=== PATIENT | female | born 1950 | race Caucasian/White ===

== ENCOUNTER 2019-01-29 18:45 | Inpatient (IN) | payer MEDICARE ==
[~2019-01-29] VITALS: Ht 175.3 cm; Wt 115.6 kg
--- NOTE | 2019-01-29 | NUR ---
PT RESTING IN BED, EYES CLOSED. RR 16, EVEN,UNLABORED. CPOX 98% 2L NC, P60, TELE 31 SINUS MIKAYLA @ 57. CALL LIGHT IN REACH.
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
--- NOTE | 2019-01-29 22:20 | NUR ---
PT ARRIVED TO FLOOR VIA STRETCHER, SHE WAS TRANSFERED OVER TO BED WITH THE ASSISTANCE OF 4 PEOPLE USING DRAW SHEET. ALBERT CATH IN PLACE AND DRAINING WELL. PT IS TUCKED INTO BED AND CALL LIGHT IS CLOSE.
--- NOTE | 2019-01-30 02:38 | NUR ---
ASSESSMENT COMPLETED. PT SLEEPY. PT DENIES PAIN. RIGHT HAND IV CDI, WNL. IV FLUIDS INFUSING PER ORDER. LUNG SOUNDS PRESENT IN ALL LOBES, CLEAR. TELE #1, SINUS MIKAYLA AT 58. NO OTHER NEEDS, CALL LIGHT IN REACH.
--- NOTE | 2019-01-30 04:55 | NUR ---
PT HAS SLEPT MOST THE SHIFT. PT HAS NOT HAD PAIN SINCE FIRST DOSE OF PRN PAIN MED ON THE MEDSUR FLOOR. LUNG SOUNDS CLEAR AND PRESENT IN ALL LOBES. IV CDI, WNL. PT TOLERATED IV FLUIDS AND ALBERT WELL.
--- NOTE | 2019-01-30 05:19 | NUR ---
PT CALLS STATING SHE IS IN 5/10 PAIN IN LOWER BACK. PRN PAIN MEDICATION PROVIDED. ASSESSMENT, VS AND I&O COMPLETED. PT A&O X4. GCS 15. PT REPOSITIONED. NO OTHER NEEDS AT THIS TIME.
--- NOTE | 2019-01-30 07:00 | NUR ---
REPORT RECEIVED FROM BOOM TRUCK DRIVER RN. PT IN BED WITH EYES CLOSED. CPOX IN PLACE. SATURATIONS 97% ON 2L NC. TELE 1 PLACED. PT IS SR. HR 69. LR AT 100 INFUSING. CALL LIGHT IN REACH.
--- NOTE | 2019-01-30 07:26 | NUR ---
Discussion with Dr Lin. Verbal order to change status to In PT. Dr. Mendoza will consult.
--- NOTE | 2019-01-30 09:00 | NUR ---
DR ROMAN IN TO TALK TO FAMILY ABOUT PLAN OF CARE.
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
--- NOTE | 2019-01-30 10:30 | NUR ---
PT REPROTING 10/28 PAIN IN LOWER BACK. PRN PAIN MEDICATIONS GIVEN. 2L NC STILL IN PLACE. CPOX ON. TELE WIT SR. CALL LIGHT IN REACH. LUNCH ORDERED. DENIES FURTHER NEEDSS.
--- NOTE | 2019-01-30 10:36 | NUR ---
Spoke with pt. She is awake and alert x 3 at my visit. 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 Lives alone in [place] and SO lives across the street. Pt states she is independent and working. Uses a cane at times as she needs surgery on knees bilaterally. Friend Marci, in to visit and plan is for pt to discharge to Marci's home on discharge. [facility]. Called and requested records which were recieved and given to Gisela on med floor to scan into the chart. Dr. Lin updated.
--- NOTE | 2019-01-30 12:11 | NUR ---
PT RESTING IN BED, VERY SORE, BUT PLEASANT. WOULD LIKE TO HAVE FR TURNER VISIT TODAY, BUT STATED SHE WON'T BE MUCH COMPANY. ASSSED ALONG. HAD PRAYER WITH PT AND SHE SEEMED CHILLED, GOT HER A WARM BLANKET. WILL FOLLOW NEEDED
--- NOTE | 2019-01-30 12:30 | NUR ---
ATTEPMTED 2PA WITH FWW TO CHAIR FOR LUNCH. PT ABLE TO SIT AT SIDE OF BED THEN REFUSED TO GET IN CHAIR REFERENCING TO PAIN IN RIGHT KNEE. PT HELPED BACK TO BED. DR ROMAN TO BEDSIDE FOR CONSULTATION.
--- NOTE | 2019-01-30 14:06 | NUR ---
PT REPORTING 11/27 PAIN 1 MEDFORD ADMINSITERED. CALL LIGHT IN REACH.
--- NOTE | 2019-01-30 15:45 | NUR ---
NO DECREASE IN PAIN. OTHER NORCO ADMINSTERED. ICE APPLED TO RIGHT KNEE. CALL LIGHT IN REACH
--- NOTE | 2019-01-30 16:00 | NUR ---
PT REPORTING PAIN NOT MANAGED BY PAIN MEIDCAITONS. PT SENSITIVE OT NARCOTIC PAIN MEDS. DR NUNEZ NOTIFIED. ORDERS FOR 30MG TORIDOL IV Q6P, MOTRIN 600MG PO Q6P, DECREASE IV FLUIDS TO 75ML/HR, AND RIGHT KNEE X RAY R/T ICREASE IN KNEE PAIN. ODERS READ BACK FOR VERIFICATION.
--- NOTE | 2019-01-30 17:41 | NUR ---
PT LYING IN BED AWAKE WITH DINNER. FRIEND AT BEDSIDE. CALL LIGHT IN REACH.
--- NOTE | 2019-01-30 19:10 | NUR ---
RECEIVED REPORT FROM ALICIA MONTESINOS. pt COMPLAINED OF 9/10 PAIN. WHITEBOARD UPDATED. CALL LIGHT WITHIN REACH. WILL RETURN TO MEDICATE.
--- NOTE | 2019-01-30 19:33 | NUR ---
NO SHOWER OR BED BATH DO TO PATIENT IS IN TO MUCH PAIN.
--- NOTE | 2019-01-30 19:46 | NUR ---
DR NUNEZ NOTIFIED OF PT INCREASE IN WEIGHT OF 2 LBS, DECREASED OXYGEN SATURATION TO 88% ON 2L. TITRATED TO 3L NC. POSATIVE FLUID BALANCE OF 1 LITER. ORDERS TO DECREASE IV FLUIDS TO 50ML/HR AND CONTINUE TO MONITOR.
--- NOTE | 2019-01-30 19:58 | NUR ---
pt RATED PAIN 9/10, BASELINE PAIN 5/10. USES AN IMPLANTED "STIMULATOR" FOR PAIN MANAGEMENT. DOES NOT HAVE THE CONTROL DEVICE WITH HER AT THIS TIME. PRN PAIN MED GIVEN (SEE MAR). POSSESSIONS WITHIN REACH. CALL LIGHT WITHIN REACH.
--- NOTE | 2019-01-30 21:35 | NUR ---
NEW IV STARTED IN LEFT WRIST, SECURED WITH TAPE AND COBAN. IV IS INFUSING FINE. MAY BOX TRUCK OWNER OPERATOR REMOVED FEILDSTART IV IN RIGHT HAND AND PT TOLERATED WELL. PT DENIES FURTHER NEEDS AT THIS TIME. CALL LIGHT IS CLOSE.
--- NOTE | 2019-01-30 21:44 | NUR ---
VITALS AND I&OS DONE AND CHARTED. ROOM CLEANED, GARBAGE EMPTIED. FRESH ICE WATER GIVEN. BEDSIDE TABLE AND CALL LIGHT IN REACH.
--- NOTE | 2019-01-30 22:30 | NUR ---
pt RESTING IN BED. ASSESSMENT DONE. EDUCATED ON IMPORTANCE OF DEEP BREATHING, pt DEMONSTRATED CORRECT USAGE OF IS. pt COMPLAINED OF CONTINUED PAIN HAS NOT GOTTEN WORSE. WILL CONTINUE TO MONITOR. CALL LIGHT WITHIN REACH.
--- NOTE | 2019-01-31 00:28 | NUR ---
ROUNDED ON pt. RESTING IN BED WITH EYES CLOSED, RESPIRATIONS REGULAR AND UNLABORED. CALL LIGHT WITHIN REACH.
--- NOTE | 2019-01-31 01:18 | NUR ---
I WENT INTO PT'S ROOM TO EMPTY HER ALBERT, SHE STARTED TALKING ABOUT" THE CATS ON THE WOOTEN" ALSO THE "PEOPLE IN THE ROOM" I EXPLAINED TO HER SHE WAS AT [facility] AND THAT I WAS THE ONLY ONE IN HER ROOM AND THERE WERE NO CAT'S IN HER ROOM. SHE SAID SHE DID NOT BELIEVE ME. I ASKED HER IF THERE WAS ANYTHING I COULD DO FOR HER ? SHE SAID TO " TURN OF THE NOISE ON HER BED" I EXPLAINED TO HER I CANT AND THAT THE BED MAKES NOISES SOMETIMES. SHE SAID "OK" SHE DENIED NEEDING ANYTHING MORE AT IS TIME. BEDSIDE TABLE AND CALL LIGHT IN REACH.
--- NOTE | 2019-01-31 02:39 | NUR ---
ROUNDED ON pt. pt AWAKE, REPORTED 9/10 PAIN, PRN GIVEN (SEE MAR). pt STATED "DON'T WALK THERE IT WILL DRIP ON YOU!" WHEN ASKED TO ELABORATE THE pt REPLIED "THE HEAT LAMP. THE ONE RECESSED INTO THE CEILING IS DRIPPING. YOU ALMOST GOT DRIPPED ON." AFTER TURNING ON THE LIGHT AND STATING THAT THIS RN DID NOT SEE DRIPPING THE pt REPLIED "I WAS HALLUCINATING BEFORE BUT WE BOTH KNOW THAT I AM NOT HALLUCINATING NOW." pt ALLOWED THIS RN TO DO A PARTIAL ASSESSMENT, REFUSED TO OPEN EYES TO EXAMINE PUPILS. CALL LIGHT WITHIN REACH.
--- NOTE | 2019-01-31 04:55 | NUR ---
pt SPEAKING IN ROOM. pt REPORTED HER BLANKETS WERE WET. BLANKETS DRY TO THE TOUCH. OFFERED A WARM BLANKET, pt STATED "YOU MEAN I CAN ACTUALLY HAVE A WARM BLANKET? WAIT HOW DO YOU WARM THEM." WHEN LEAVING ROOM pt STATED "DON'T SPRAY ANYTHING ON THEM." PLACED WARM BLANKET ON pt, pt STATED "I HEARD YOU SPRAYING SOMETHING ON THIS BLANKET I DON'T WANT IT" ITERATED HOW THE BLANKET WARMER WORKED. pt REPLIED THE WARM BLANKET FELT NICE WHEN ASKED IF THERE WAS ANYTHING ELSE THE pt REPLIED "YOU CAN ANSWER THE CALL LIGHT WHEN I USE IT. YOU CAN'T DO THAT FROM THE ROOF SO YOU HAD BETTER PULL A SHANNAN AND COME ON DOWN." CALL LIGHT WITHIN REACH.
--- NOTE | 2019-01-31 06:23 | NUR ---
PT CALLED OUT "MOE" UPON ENTERING THE ROOM SHE STATED "SEE THAT LIGHT BY THE TV, THE BULLDOG ONE UP THERE" PT THEN REQUESTED THAT WE "QUIT PUTTING THE WIRE THROUGH THE WALL" AND TO "TELL MARCO THAT". PT IS NOT EASILY REDIRECTED AND INSISTS THERE IS A BULL DOG UP THERE. PT DENIES FURTHER NEEDS AT THIS TIME. CALL LIGHT IS CLOSE.
--- NOTE | 2019-01-31 06:32 | NUR ---
pt HAD VISUAL AND AUDITORY HALLUCINATIONS DURING SHIFT. IV FLUIDS DECREASED RATE AT START OF SHIFT. URINE OUTPUT LOW. pt DID NOT REST MUCH DURING SHIFT. PAIN ALWAYS RATED 9/10, HAS CHRONIC BACK PAIN WITH IMPLANTED STIMULATOR THAT IS CURRENTLY OFF PER pt. pt ORIENTED ALTHOUGH REFUSES TO GIVE HER NAME AND DATE AT TIMES DUE TO "PRIVACY" CONCERNS. pt HAS NOT USED CALL LIGHT.
--- NOTE | 2019-01-31 07:20 | NUR ---
BEDSIDE REPORT RECEIVED PT ALERT AND INTERACTIVE
--- NOTE | 2019-01-31 07:23 | NUR ---
UPDATED ON MD ABOUT LOW OUTPUT. ORDERED IV FLUIDS TO INCREASE TO 75MLS/HR. PRIMARY RN NOTIFIED. PUMP CHANGED.
[2019-01-31] MEDS ORDERED: PROBENECID500 MG PO (07:44)
[2019-01-31] MEDS ORDERED: CHLORTHALIDONE25 MG PO (07:44)
[2019-01-31] MEDS ORDERED: RANITIDINE HCL150 MG PO (07:45)
[2019-01-31] MEDS ORDERED: BACLOFEN10 MG PO (07:45)
[2019-01-31] MEDS ORDERED: PREGABALIN75 MG PO (07:46)
[2019-01-31] MEDS ORDERED: TIZANIDINE HCL4 MG PO (07:46)
[2019-01-31] MEDS ORDERED: BISOPROLOL-HCT1 EAC1 PO (07:47)
[2019-01-31] MEDS ORDERED: DULOXETINE HCL60 MG PO (07:47)
[2019-01-31] MEDS ORDERED: NORTRIPTYLINE H50 MG PO (07:48)
[2019-01-31] MEDS ORDERED: GABAPENTIN300 MG PO (07:50)
--- NOTE | 2019-01-31 09:48 | NUR ---
DR NUNEZ IN TO SEE PT. PT ALERT AND AND TALKATIVE, ANSWERS QUESTIONS APPROPRIATELY ALSO TALKS NONSENSICAL, "TRIES TO REMEMBER WHERE SHE AND THIS PUBLIC POLICY COORDINATOR WORKED TOGETHER" AND THINGS OF THAT NATURE. USES I/S WITH ENCOURAGEMENT REFUSES UP TO THE CHAIR, BUT DOES WORK WITH P/T FOR A TIME. PT IS NON-WT BEARING RLE UNTIL CT IS COMPLETED. DOES NOT C/O PAIN, BUT TYLENOL AND IBUPROFEN GIVEN PREVENTATIVELY.
--- NOTE | 2019-01-31 11:23 | NUR ---
PATIENT HAS BEEN VERY CONFUSES. SAY THE THERE ARE PROPLE OUT TO GET HER. AND SAYS THAT THERE ARE PEOPLE IN HER ROOM SPITTING IN HER. GAVE PATIENT SOME WATER SHE ATE VERY LITTLE BREAKFAST. CALL LIGHT IS IN REACH, PATIENT HAS A VISTOR IN HER ROOM AT THIS TIME.
--- NOTE | 2019-01-31 13:04 | NUR ---
PT'S PERSONAL ITEMS PLACED IN SAFE. $955. PARKINSON, DEBIT CARD, CHECK BOOK AND OTHER PERSONAL CARDS SENT WITH SECURTY IN CLOSED ENVELOPE. VERIFIED MONEY WITH SECURITY.
--- NOTE | 2019-01-31 13:37 | NUR ---
PT DOWN FOR CAT SCAN RETURNS TO ROOM KNEE BRACE APPLIED PER DR RUBIO WHO WAS IN EARLIER. PT TOLERATING FLUIDS AND FRUIT REFUSES REGULAR MEAL. CONTINUES TO HAVE SOME CONFUSION.
--- NOTE | 2019-01-31 15:12 | NUR ---
Medications reconciled using pharmacy records
--- NOTE | 2019-01-31 16:09 | NUR ---
PT UP TO BEDSIDE COMMODE ABLE TO HAVE A BM, RETURNS TO BED TO REST, WELL TOLERATED. CONTINUES TO BE CONFUSED BUT COOPERATIVE
--- NOTE | 2019-01-31 17:45 | NUR ---
PT TOLERATES BITES ONLY OF EVENING MEAL, REFUSES OFFER OF DIFFERENT ITEMS. TAKING FLUIDS WELL. PT AGREES HER PAIN IS WELL CONTROLLED AT THIS TIME
--- NOTE | 2019-01-31 19:00 | NUR ---
RECEIVED REPORT FROM ALICIA BLAKE. pt RESTING IN BED. NO REQUESTS AT THIS TIME. CALL LIGHT WITHIN REACH. WHITEBOARD UPDATED.
--- NOTE | 2019-01-31 20:27 | NUR ---
CALL LIGHT ANSWERED. pt GIVEN CALL LIGHT. DENIES TOILETING OR ADDITIONAL NEEDS AT THIS TIME. IVF INFUSING WNL. TRAY TABLE ADJUSTED.
--- NOTE | 2019-01-31 21:10 | NUR ---
pt LAYING IN BED. RESPONDED APPROPRIATELY TO QUESTIONS. COMPLAINED THAT THE CEILING WAS DRIPPING ON HER AND REQUESTED THAT HER BED BE MOVED, DONE. ALBERT CARE DONE. VITALS AND I&O RECORDED. ASSESSMENT DONE. pt RATED PAIN 9/10. EDUCATED ON PAIN MANAGEMENT WILL RETURN WITH MEDICATIONS. pt AGREEABLE. REARRANGED POSSESSIONS PER REQUEST AND CLOSED ALL DOORS. NO FURTHER REQUESTS AT THIS TIME. CALL LIGHT WITHIN REACH.
--- NOTE | 2019-01-31 21:21 | NUR ---
CALL LIGHT ON. pt REQUESTED THAT HER BED BE MOVED BECAUSE "THERE IS WATER DRIPPING ON MY FACE AND IN MY EAR." NO LIQUID NOTED ON pt's FACE AND EARS. MOVED BED. pt POINTED TO GRID ON CEILING AND STATED "IT'S ALL UP THERE AND IT'S FROZEN! I'M NOT HALLUCINATING!" INFORMED pt THAT THIS RN WILL TALK TO THE CHARGE NURSE AND SEE IF WE COULD DO SOMETHING. pt AGREEABLE AT THIS TIME. CALL LIGHT WITHIN REACH.
--- NOTE | 2019-01-31 21:53 | NUR ---
CALLED MD REGARDING LAB RESULTS. NEW ORDERS ENTERED.
--- NOTE | 2019-01-31 22:07 | NUR ---
VITALS AND I&OS DONE AND CHARTED. BEDSIDE TABLE AND CALL LIGHT IN REACH.
--- NOTE | 2019-01-31 22:17 | EKG ---
[facility] [address] [place] [address] Signed Normal sinus rhythm Normal ECG No previous ECGs available Confirmed by MARCO ANTONIO ROMAN MD ([id number]) on 01/31/2019 10:17:02 PM Electronically Signed By: MARCO ANTONIO ROMAN MD 01/31/19 2217 PATIENT NAME: CHIKIS HOLDER Electrocardiogram DATE OF : 52 PHYSICIAN: MARCO ANTONIO ROMAN MD REPORT #: [id number] REPORT IS CONFIDENTIAL AND NOT TO BE RELEASED WITHOUT AUTHORIZATION
--- NOTE | 2019-01-31 22:30 | NUR ---
IV ABX INFUSING PER ORDERS. pt VERBALIZED UNDERSTANDING OF TREATMENT. CALL LIGHT WITHIN REACH.
--- NOTE | 2019-01-31 23:11 | NUR ---
IV ABX INFUSION COMPLETE. MAINTENANCE FLUIDS INFUSING. CALL LIGHT WITHIN REACH.
--- NOTE | 2019-02-01 01:33 | NUR ---
CALL LIGHT ON. pt REQUESTED BED BE MOVED BECAUSE "I'M GETTING WET AND I'LL DRY OUT BETTER OVER THERE" BED MOVED PER REQUEST. NO MOISTURE NOTED. PRN PAIN MED GIVEN (SEE MAR). CALL LIGHT WITHIN REACH.
--- NOTE | 2019-02-01 03:52 | NUR ---
ROUNDED ON pt. IV PUMP TURNED TOWARD BED MOVED FROM PRIOR LOCATION. IV PUMP OFF. TUBING BROKEN FROM CASSETTE. NO FLUID FOUND ON BED LINENS OR ON FLOOR. IV PATENT, BLOOD RETURN NOTED. pt STATED "I NEED TO GET UP. RICHI IS COMING TO GET ME." ORIENTED TO PLACE AND SITUATION. STATED "RICHI IS JUST DOWN THE GIRON, GO GET HER." ATTEMPTED TO SIT UP AND GET OUT OF BED. 4PA TO REPOSITION IN BED. LIGHTS ON. pt APPRECIATIVE OF CARE. ASSESSMENT DONE. PRN PAIN PILL GIVEN (SEE MAR). NEW BAG OF FLUIDS HUNG. pt HESITANT ABOUT IV FLUIDS, OKAY TO RUN UNTIL 8AM. BED ALARM ON. CALL LIGHT WITHIN REACH.
--- NOTE | 2019-02-01 05:27 | NUR ---
pt REQUESTED TO SIT UP ON THE SIDE OF THE BED. 2PA TO SIT UP. BED BATH DONE, CHANGED DRAW SHEET. ASSISTED pt BACK TO LAYING DOWN. pt REPORTED THAT HER PAIN WAS IMPROVED TO 8/10. PRN PAIN MED GIVEN. VITALS AND I&O RECORDED. ATTEMPTED TO REMOVE RING OFF LEFT HAND, UNABLE TO DO SO. CALL LIGHT WITHIN REACH.
--- NOTE | 2019-02-01 06:21 | NUR ---
pt RESTED ON AND OFF DURING SHIFT. PAIN STEADY AT 9/10 PRN MEDICATIONS GIVEN X5. EDEMA IN UPPER EXTREMETIES INCREASED. SEDIMENT IN OUTPUT, ALBERT. SAT AT THE SIDE OF THE BED. BED BATH GIVEN. IVF INFUSING. BRACE TO RIGHT LEG. CONFUSED. HALLUCINATING AT TIMES. USES CALL LIGHT.
--- NOTE | 2019-02-01 07:30 | NUR ---
BEDSIDE REPORT RECEIVED. PT STATES SHE NEEDS TO GO STATES HER FRIEND IS WAITING FOR HER ATTEMPTED TO REORIENT UNSUCESSFULLY. ASSISTED PT TO STAND AT BEDSIDE FOR A MINUTE RETURNED TO RESTING IN BED. IV FLUIDS INFUSING ALBERT DRAINING. PT APPEARS CONTENT AT THE MOMENT
--- NOTE | 2019-02-01 08:50 | NUR ---
PT ATE VERY LITTLE BREAKFAST, REFUSES OFFERS OF OTHER ITEMS. ASSISTED WITH PERSONAL HYGIENE THEN TO CHAIR. PT USES I.S WITH ENCOURAGEMENT.
--- NOTE | 2019-02-01 10:04 | NUR ---
PT REMAINS IN THE CHAIR ALL MORNING. DR NUNEZ IN TO SEE HER, SHE CONTINUES TO BE CONFUSED DETERMINED TO GO HOME. UP TO WORK WITH P/T THEN RETURNS TO RESTING IN BED. CALL LIGHT IN HAND, H20 AT BEDSIDE, PT AGREES SHE IS COMFORTABLE
--- NOTE | 2019-02-01 11:18 | NUR ---
dr alba in to see pt discusses plan going forward, pt still determined to be dc'd. iv sl'd per dr alba and gomez mike'd
--- NOTE | 2019-02-01 12:46 | NUR ---
2 PERSON ASSIST TO SHOWER, WELL TOLERATED. PT RETURNS TO BED VISITORS X3 PRESENT. DR ROMAN CONSULTS WITH PT'S FRIEND WHO SHE PLANS TO STAY WITH AFTER SOME REHAB.
--- NOTE | 2019-02-01 13:45 | NUR ---
PT SITTING UPRIGHT IN BED TALKING WITH VISITOR X1 CRYO CUFF TO KNEE
--- NOTE | 2019-02-01 17:55 | NUR ---
PT SITTING UPRIGHT IN BED FOR EVENING MEAL, DOES BETTER EATING, TAKING FLUIDS WELL. PT STILL RESPONDING TO UNSEEN STIMULI STATES HER ROOM IS FULL OF NATS ETC. STATES HER PAIN IS WELL CONTROLLED AT THIS TIME.
--- NOTE | 2019-02-01 19:00 | NUR ---
BEDSIDE REPORT RECEIVED FROM ALICIA BLAKE. pt AWAKE IN BED. RATES PAIN 5/10, STATES "IT'S GOOD". CRYO CUFF WITH ICE IN PLACE ON RIGHT KNEE. NO REQUESTS AT THIS TIME. CALL LIGHT IN REACH.
--- NOTE | 2019-02-01 20:41 | NUR ---
ROUNDED CHARGE. BALDOMERO VARGAS IN ROOM. PATIENTS DRYO REFILLED AND ICE WATER REFILLED. NO FURTHER NEEDS NOTED. CALL LIGHT IN REACH.
--- NOTE | 2019-02-01 20:54 | NUR ---
pt ASSESSMENT COMPLETE. CSM INTACT BLE, 1+ EDEMA BLE, 2+ RLE. BRACE IN PLACE. 2PA TO PIVOT TO [facility] FOR VOID AND BACK TO BED. pt ABLE TO TRANSFER SELF, MINIMAL ASSIST. PRN PAIN MEDICATION FOR 9/10 "ALL OVER PAIN, DOWN SIDE, LOWER BACK". IV ANTIBIOTIC INFUSING WNL ORDERED. CALL LIGHT IN REACH. pt ORIENTED TO ALL ORIENTATION QUESTIONS. STATES "THAT TOILET IS BROKEN, WATER IS LEAKING ALL OVER." NO WATER NOTED. BED ALARM ON FOR pt SAFETY.
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
--- NOTE | 2019-02-01 22:54 | NUR ---
IN pt ROOM, pt YELLING AT MANAGER RN. HOLDING ID BADGE. pt REFUSES TO LET MANAGER RN ASSIST pt. STATES TO PRIMARY NURSE "GET HER OUT OF HERE. I WANT TO TALK TO YOU. I NEED YOU TO TURN THAT FIRE PLACE OFF AND QUIT PARTYING. POP THE POPCORN IN THE MICROWAVE AND NOT ON THE FIRE". pt DECLINES SLEEP MASK OR EAR PLUGS. REORIENTATION TO SOUNDS OF CARE. pt REFUSES TO LET RN SHUT DOOR. BED ALARM ON. pt RESTING IN BED AT THIS TIME.
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
--- NOTE | 2019-02-01 23:35 | NUR ---
pt RESTING IN BED WITH EYES CLOSED. APPEARS TO BE SLEEPING. BREATHING UNLABORED. LIGHTS OFF IN ROOM. BED ALARM ON.
--- NOTE | 2019-02-02 00:59 | NUR ---
pt AWAKE LYING IN BED. IN ROOM TO ASSESS PAIN. STATES "I DON'T WANT ANYTHING, I WANT YOU TO GET IN YOUR CAR AND GO". CURTAIN OPEN. BED ALARM ON.
--- NOTE | 2019-02-02 01:13 | NUR ---
pt CALLING OUT. RATES PAIN 10/10 "ALL OVER". PRN PAIN MEDICATION ADMINISTERED. pt COOPERATIVE. DENIES TOILETING NEEDS. CALL LIGHT IN REACH. BED ALARM ON.
--- NOTE | 2019-02-02 01:15 | NUR ---
pt started trying to get out of bed. I went to see if she needed something and she stated "Did you lock all the doors out there?" I said yes, i took care of it. I asked if she was feeling painful and she said "yes, I am at a 10." ALICIA Sanchez notified. Nothing further needed at this time.
--- NOTE | 2019-02-02 01:50 | NUR ---
BED ALARM SOUNDING. pt CONFUSED, ASKING WHAT ALL THE NOISE WAS. 2PA TO BSC FOR VOID AND BACK TO BED. ASSESSMENT COMPLETE. pt HALLUCINATING, SEEING PEOPLE ON COUCH AND WATER IN PUDDLES ON FLOOR. ABLE TO REMOVE RING, IN PERSONAL BELONGING BAG IN CLOSET. CALL LIGHT IN REACH. BED ALARM ON.
--- NOTE | 2019-02-02 01:57 | NUR ---
pt started getting out of bed causing the bed alarm to go off. ALICIA Sanchez and myself went into room and assisted pt onto BSC and pt did very well. She resulted in 350ccs of urine. She was assessed by ALICIA Sanchez, and nothing further was needed. Bed alarm set, pt comfortable.
--- NOTE | 2019-02-02 03:10 | NUR ---
pt used call light accidentally. I went to see if pt needed anything at this time and was wondering if i could "work this damn bed". She wanted her feet down. She "needs to figure this out so I could go on my walk". I told her she could try to get some more rest since it is 0300. She believed it was 1500. Pt reoriented and was happy to try and get more rest. nothing further needed at this time.
--- NOTE | 2019-02-02 04:34 | NUR ---
BED ALARM SOUNDING. pt HALLUCINATING, SEEING SPIDERS ON DOOR. REORIENTATION PROVIDED. RATES PAIN 8.5/10 IN LL BACK. PRN PAIN MEDICATION ADMINISTERED. BED ALARM ON. pt REFUSING TO GET UP TO CHAIR AT THIS TIME. LYING IN BED, HOB ELEVATED, DRINKING WATER.
--- NOTE | 2019-02-02 04:37 | NUR ---
pt set bed alarm off. went into room and she was saying she wanted a pain pill. ALICIA Sanchez notified. Nothing further needed at this time.
--- NOTE | 2019-02-02 04:38 | NUR ---
VS and I&Os complete on pt. nothing needed at this time.
--- NOTE | 2019-02-02 04:47 | NUR ---
pt CONTINUES TO HALLUCINATE, REORIENTATION PROVIDED NEEDED FOR EVENT, LOCATION. 1PA TO BSC FOR QS VOIDS. BED ALARM IN PLACE. HINGE BRACE RLE. CRYO CUFF WITH ICE IN PLACE TOLERATED. EDEMA NOTED BLE, PEDAL PULSES STRONG BLE. PAIN WELL CONTROLLED WITH PRN MEDICATIONS, ICE. IV SL. BED ALARM IN PLACE THROUGHOUT SHIFT.
--- NOTE | 2019-02-02 06:29 | NUR ---
pt BACK IN BED AFTER UP TO COMMODE WITH RON ROCA. pt RATES PAIN 7-7.5/10 IN LOWER BACK "IT'S OKAY, KIND OF STILL UP THERE". CRYO CUFF WITH ICE IN PLACE RIGHT KNEE. SCHEDULED MEDICATION ADMINISTERED. CALL LIGHT IN REACH. pt VISITING WITH FRIEND RICHI IN ROOM. ICE WATER PROVIDED.
--- NOTE | 2019-02-02 07:25 | NUR ---
BEDSIDE REPORT FROM BALDOMERO VARGAS, IN PT ROOM DISCUSSING PLAN OF CARE WITH PT AND FRIEND AT BEDSIDE.
--- NOTE | 2019-02-02 07:30 | NUR ---
In and spoke with Dionne. Friend Marci present. Discussed placement to [facility], and pt states she is not excited. Discussed further need to be safe when discharging and our concern for Marci. Marci states she is 88 yo and also has concerns. Dionne comments she does not want to over tax Marci. States she would agree to go to [facility] for 3-4 weeks and then go to Marci's house. Discussed PT at [facility] would be able to tell her when she meets goals and can discharge.
--- NOTE | 2019-02-02 07:40 | NUR ---
PATIENT RESTING IN BED. FRIEND IN ROOM. PATIENT REFUSED TO CLEAN HER HANDS AND FACE. CALL LIGHT WITHIN REACH. NO OTHER NEEDS AT THIS TIME
--- NOTE | 2019-02-02 08:35 | NUR ---
PT COOPERATIVE WITH CARE REPORTS STILL SEEING WATER LIKE RAIN IN ROOM AND HALLWAY. SHE UNDERSTANDS IT IS NOT TRUE.
--- NOTE | 2019-02-02 08:49 | NUR ---
NOTIFIED OF PATIENT HAVING CONTINUED VISUAL DISTURBANCES/HALLUCINATIONS.
--- NOTE | 2019-02-02 09:14 | NUR ---
Chart sent to [facility]: Face Sheet, h&P, ER notes, Progress notes, Dr. Mansfield, PT betty and notes, Dr Lin progress notes.
--- NOTE | 2019-02-02 10:19 | NUR ---
PATIENT RESTING IN BED. VITAL SIGNS AND I&O DONE. HIGH BLOOD PRESSURE. RN NOTIFIED. CALL LIGHT WITHIN REACH. NO OTHER NEEDS AT THIS TIME
--- NOTE | 2019-02-02 10:41 | NUR ---
PT WORKING WITH PHYSICAL THERAPY AT THIS TIME.
--- NOTE | 2019-02-02 11:09 | NUR ---
PT RESTING IN BED SHE REPORTS SHE IS STILL HAVING VISUAL DISTURBANCES, IN WATER IN CEILING LIGHTS AND PUPPIES IN CEILING GRATES.
--- NOTE | 2019-02-02 12:02 | NUR ---
CALL LIGHT ANSWERED. PATIENT RESTING IN BED. PATIENT GOES TO USE THE BATHROOM. PATIENT USES WALKER. ONE PERSON ASSISTING. PATIENT BACKS TO BED. CALL LIGHT WITHIN REACH. NO OTHER NEEDS AT THIS TIME
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
--- NOTE | 2019-02-02 13:13 | NUR ---
PT LAYING IN BED, VISITING WITH FRIEND. PT IS PLEASANT, ALERT AND ORIENTED. PT MENTIONED THAT SHE IS TO BE DC'D TO [facility]. SHE ADMITTED AT FIRST SHE TOOK THE NEWS HARD, BUT NOW UNDERSTANDS. ENCOURAGED PT TO VIEW [facility] A TOOL TO GET TO WHERE SHE WANTS TO BE. PT SAYS SHE UNDERSTANDS, REQUESTED PRAYER, CHOSE TO NOT HAVE CROSS CUT SAW OPERATOR BY TODAY. WILL FOLLOW NEEDED
--- NOTE | 2019-02-02 13:41 | NUR ---
PATIENT RESTING IN BED. VISITOR IN ROOM. PATIENT REFUSED TO TAKE HER VITAL SIGNS. THE PATIENT SEEMS CONFUSED AND IS CALLING "LISSA". THIS WAD LUBRICATOR IS GOING TO TRY TO OBTAIN HER VITAL SIGNS IN 20 MINUTES. RN NOTIFIED. I&O DONE. CALL LIGHT WITHIN REACH. NO OTHER NEEDS AT THIS TIME
--- NOTE | 2019-02-02 14:09 | NUR ---
PATIENT RESTING IN BED. VITAL SIGNS DONE. HIGH SYSTOLIC BLOOD PRESSURE. RN NOTIFIED. CALL LIGHT WITHIN REACH. NO OTHER NEEDS AT THIS TIME
--- NOTE | 2019-02-02 14:16 | NUR ---
PATIENT RESTING IN BED. PATIENT ASKS FOR PAIN MEDICINE. RN NOTIFIED. CALL LIGHT WITHIN REACH. NO OTHER NEEDS AT THIS TIME
--- NOTE | 2019-02-02 15:25 | NUR ---
FRESH ICE TO CRYO CUFF AT THIS TIME, PT REPORTS STRESS ABOUT ALL THE BILLS SHE NEEDS TO ADDRESS, AND INSURANCE INFORMATION SHE NEEDS TO GET TO [facility] AND [facility].
--- NOTE | 2019-02-02 16:00 | NUR ---
Received call from [facility]. They will accept [place] tomorrow at 11:00. Called Dr Thompson office and requested he write orders in am for discharge.
--- NOTE | 2019-02-02 16:29 | NUR ---
PT RESTING IN BED ABLE TO REPOSITION HERSELF, SAID SHE WAS UNABLE TO HAVE A SHOWER EARLIER, SHE HAD REFUSED TAKING A SHOWER EARLIER FOR NADIA VELASQUEZ AND TOLD ISRRAEL LAY RN SHE WOULD TAKE A SHOWER TONIGHT WITH BALDOMERO VARGAS. SHOWER OFFERED AT THIS TIME BY THIS RN AND PT REFUSED. PT REPORTS PAIN IS 8-9/10. PT IS LAYING IN BED RELAXED POSITION MAKING JOKES WITH THIS RN AND LAUGHING.
--- NOTE | 2019-02-02 16:40 | NUR ---
PT HAS REPORTED ON ASSESSMENT TO CONTINUE TO HAVE HALLUCINATIONS/VISUAL DISTURBANCES. SHE HAS HAD BED ALARM ON SHE DOES NOT CALL APPROPRIATLY. SHE HAS REPORTED HIGH PAIN LEVELS, SHE HAS BEEN ABLE TO NAP, LAUGH AND JOKE WITH THIS RN. SHE HAS REFUSED TO SHOWER WHEN OFFERED THEN REPORTED NOT ABLE TO SHOWER. SHE WORKED WITH PHYSICAL THERAPY TODAY AND PLAN TO DISCHARGE TO [facility] WHEN APPROVED.
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
--- NOTE | 2019-02-02 18:15 | NUR ---
BED ALARM WENT OFF, PATIENT TRYING TO GET OUT OF BED TO GO TO BATHROOM. PATIENT UP TO BATHROOM, 1PA FWW. PATIENT NOW BACK TO BED, 1PA FWW. CALL LIGHT IN REACH. NO FURTHER NEEDS AT THIS TIME.
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
--- NOTE | 2019-02-02 19:46 | NUR ---
REPORT RECEIVED FROM DAY SHIFT RN. PT LYING IN BED, ALERT AND ORIENTED. DENIES NEEDS AT THIS TIME. BED ALARM ON. CALL LIGHT IN REACH.
--- NOTE | 2019-02-02 20:42 | NUR ---
RETURNED FROM CT SCAN. WAS PLEASANT AND COOPERATIVE DURING TEST. NEEDED SOME ENCOURAGEMENT TO GO, TALKING ABOUT PEOPLE WHO WE IN THE OTHER ROOM, SAID ED WAS "JUST HERE, IN THE OTHER ROOM". REFERRED TO THIS PLACE NOT A HOSPITAL. TALKS TO THIS NURSE THOUGH SHE KNOWS ME, IS UNKNOWN TO THIS NURSE. BACK INTO BED, USED WALKER WITH ENCOURAGEMENT. PIVOTED INTO BED WITH 2 PERSON ASSIST. BED ALARM IN PLACE.
--- NOTE | 2019-02-02 21:35 | NUR ---
Xray 1 called via [employer] asking how to get ahold of the hospitalist due to radiologist unable to get connected. I took down radiologists number and informed Dr. Mendoza.
--- NOTE | 2019-02-02 21:46 | NUR ---
PT SAW GETTING OUT OF BED, THIS NURSE TO ROOM. PT STATED IT WAS TIME TO GO, SHE NEEDED TO LEAVE. WORDS OF ENCOURAGEMENT GIVEN, THEN PT STATED WILL I HAVE TO GO THEN. OFFERED BATHROOM AND SHE SAID YED. WITH ASSIST OF 2, SHE WAS GOTTEN UP WITH FWW, TO BSC. SLOW, ABLE TO FOLLOW INSTRUCTIONS, VOIDED, THEN BACK TO BED, BED ALARM IN PLACE. SHE AGREED THAT STAYING THE NIGHT WOULD BE GOOD, BUT CONVERSATION DIVERTED NON CURRENT EVENTS.
--- NOTE | 2019-02-02 21:50 | NUR ---
Dr. Mendoza contacted the nurses station and asked me to push ct images to [facility]. This was done and Supervisor Fusing Room Kirby said he will send them immediately.
--- NOTE | 2019-02-02 22:59 | NUR ---
EVENING ASSESSMENT COMPLETE. PM MEDS GIVEN WITHOUT ISSUE. PT ORIENTED TO SELF ONLY. WAS ASKING WHERE THE VAULT DOOR WAS SO SHE COULD GET HER MONEY, TALKED ABOUT HIRING A CORRECTIVE THERAPY AIDE TO GET HER MONEY BACK. ATTEMPTED TO REORIENT PT. MEDICATED WITH PRN FOR 7/10 LOWER BACK PAIN. ASSISTED PT TO REPOSITION IN BED. WARM BLANKET GIVEN. BED ALARM ON FOR SAFETY, CALL LIGHT IN REACH.
--- NOTE | 2019-02-03 01:00 | NUR ---
PT IN BED RESTING WITH EYES CLOSED, NO APPARENT DISTRESS. BED ALARM ON FOR SAFETY.
--- NOTE | 2019-02-03 02:17 | NUR ---
BED ALARM SOUNDING. PT UP TO THE SIDE OF THE BED, LOOKING FOR "PETE" THAT SHE BELIEVES IS ASLEEP AT THE NURSES STATION. ATTEMPTED TO RE-ORIENT PT BUT WAS UNSUCCESSFUL. PT TO BSC TO VOID WITH FWW AND SBA. TOE TOUCH WEIGHT BEARING ON RIGHT LEG, BRACE IN PLACE. MADYSON CARE DONE BY STAFF. BACK TO BED, ADIA WELL. PT MADE PHONE CALL TO "PETE" WHICH APPEARS TO HAVE PROVIDED COMFORT. PT RESTING IN BED WITH EYES CLOSED AT THIS TIME. BED ALARM ON FOR SAFETY.
--- NOTE | 2019-02-03 03:48 | NUR ---
BED ALARM SOUNDING. PT UP TO SIDE OF THE BED, DISORIENTED, LOOKING FOR "PETE". REASSURED PT PETE WAS HOME SLEEPING SAFELY. MEDICATED WITH PRN TYLENOL FOR 10/10 LOWER BACK PAIN. ICE PACK TO RIGHT KNEE. BED ALARM ON FOR SAFETY. CALL LIGHT IN REACH.
--- NOTE | 2019-02-03 04:30 | NUR ---
PT RESTING IN BED WITH EYES CLOSED, NAD. BED ALARM ON.
--- NOTE | 2019-02-03 05:04 | NUR ---
CALL LIGHT ON, ASKED DON'T YOU WANT TO TURN THIS OFF. UNSURE WHAT SHE WAS REFERRING TO, BUT ASKED HER IF SHE WAS COLD AND WANTED COVERS, SHE DID. SHE ASKED ABOUT PEOPLE UNKNOWN TO THIS RATE EXAMINER, WHO WERE SLEEPING NEXT DOOR, ASKED IF PETE WAS HERE. REMINDED HER THAT SHE TALKED TO PETE DURING THE NIGHT AND HE TOLD HER HE WAS SLEEPING. SHE REPLIED THATS RIGHT. SHOULDN'T I GET UP AND MAKE DINNER, SHE SAID. REASSURED HER THAT IT WAS STILL SLEEPING TIME, AND FOR HER TO GET SOME MORE SLEEP. SHE AGREED. BED ALARM IN PLACE.
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
--- NOTE | 2019-02-03 06:20 | NUR ---
VS and I&Os complete, pt used BSC and resulted in 200ccs of urine, she transfers very well. Fresh ice water given.
--- NOTE | 2019-02-03 06:48 | NUR ---
MEDICATED WITH PRN FOR 10/10 LOWER BACK PAIN. PT WITH A FEW MOMENTS OF CLARITY AND ABLE TO RECALL EVENTS THAT LED TO HER ADMISSION. AM MEDICATIONS GIVEN WITHOUT DIFFICULTY. BED ALARM ON. CALL LIGHT IN REACH.
--- NOTE | 2019-02-03 07:15 | NUR ---
Patient laying in bed, awake, bed alarm on. Report received, orders acknowledged. Patient denies any needs at this time, call light within reach.
--- NOTE | 2019-02-03 07:59 | NUR ---
PATIENT RESTING IN BED. PATIENT'S HANDS AND FACE CLEANED. ICE WATER GIVEN. CALL LIGHT WITHIN REACH. NO OTHER NEEDS AT THIS TIME
--- NOTE | 2019-02-03 08:00 | NUR ---
Patient sitting up in bed watching tv. AM medications given, assessment complete. Knee brace in place on right knee. Patient denies pain. Ice pack applied to right hip. Patient denies further needs at this time, call light within reach.
--- NOTE | 2019-02-03 09:08 | NUR ---
Silvana at [facility] notified pt will not admit today as she may have fatty emboli. Awaiting further information from Dr. Mendoza. Pt. may be shipped.
--- NOTE | 2019-02-03 09:15 | NUR ---
Dr. Mendoza in room to discuss POC with patient
--- NOTE | 2019-02-03 10:00 | NUR ---
Patient ambulated to toilet with PT, gait belt, FWW and 1 person SBA. Voided 300 mls. Patient educated on toe touch weight bearing with right leg. Patient returns to bed with FWW, gait belt, and 1PA. States "man, I feel like I just ran 5,000 miles!" Reports pain of 6/10 after laying back in bed. PRN pain medication given (see MAR). No further needs at this time, call light within reach.
--- NOTE | 2019-02-03 10:29 | NUR ---
PATIENT RESTING IN BED. VITAL SIGNS AND I&O DONE. CALL LIGHT WITHIN REACH. NO OTHER NEEDS AT THIS TIME
--- NOTE | 2019-02-03 11:34 | NUR ---
In and spoke with Shawna. She asks questions about going to [facility] today. Discussed information Dr. Mendoza gave her and let her know she won't go today. She states she has a piece of fat in her brain. Does not want transfer to any hospitals. Let her know I will update her when I have further information. She then begins to talk about the different colored scrubs staff wear and this is how they are able to get away with the things they do. I asked her if she is aware of what she is saying. She states she is not sure. Asked if she is hallucinating and she denies at this time.
--- NOTE | 2019-02-03 12:30 | NUR ---
Patient sitting up in bed watching tv. Patient adjusted in bed for comfort. Denies further needs at this time, call light within reach.
--- NOTE | 2019-02-03 12:35 | NUR ---
PT ALERT, ORIENTED AND RESTING IN BED WATCHING TV. BROUGHT HER IN A COLORING BOOK AND G.POST. PT NOT INTERESTED IN SEEING HOSE STRIPPER, SEE SEEMS TO WANT ME TO RETURN.HAD PRAYER WITH PT, SHE ALSO REQUESTED LIGHTS TURNED OFF. WILL FOLLOW NEEDED
--- NOTE | 2019-02-03 13:27 | NUR ---
PATIENT RESTING IN BED. FRIEND IN ROOM. VITAL SIGNS AND I&O DONE. CALL LIGHT WITHIN REACH. NO OTHER NEEDS AT THIS TIME
--- NOTE | 2019-02-03 14:25 | NUR ---
Patient sitting up in bed with visitors in room. Denies needs at this time, call light within reach.
--- NOTE | 2019-02-03 14:58 | NUR ---
Patient reports pain of 8/10, prn pain medication given. Denies needs for ice packs or non-pharmacological comfort. No further needs at this time, call light within reach.
--- NOTE | 2019-02-03 18:01 | NUR ---
PATIENT RESTING IN BED. VITAL SIGNS AND I&O DONE. CALL LIGHT WITHIN REACH. NO OTHER NEEDS AT THIS TIME
--- NOTE | 2019-02-03 18:07 | NUR ---
Patient laying in bed watching tv. Denies pain. No further needs at this time, call light within reach.
--- NOTE | 2019-02-03 19:20 | NUR ---
BEDSIDE REPORT RECEIVED FROM ALICIA HANNAH. pt UP TO BSC FOR VOID AND BACK TO BED. TOE TOUCH WEIGHT BEARING WITH FWW, 1PA. IVF INFUSING WNL ORDERED. CALL LIGHT AND PERSONAL SUPPLIES IN REACH. BED ALARM ON.
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
--- NOTE | 2019-02-03 22:55 | NUR ---
1PA TO BSC FOR VOID AND SMALL SOFT STOOL. pt BACK IN BED. ICE WATER PROVIDED. BED ALARM ON. CALL LIGHT IN REACH. pt REFUSES CRYO CUFF AT THIS TIME.
--- NOTE | 2019-02-03 23:00 | NUR ---
SEEN PATIENT GETTING UP. WENT IN AND ASKED WHAT SHE NEED. PATIENT STATED "NEED TO GO TO THE BATHROOM. PRIMARY RN BALDOMERO AND THIS PHYTOCHEMISTRY PROFESSOR HELPED PATIENT USE THE BEDSIDE COMMODE. PATIENT VOIDED AND HAD BOWEL MOVEMENT. PATIENT IS BACK IN BED. CALL LIGHT IN REACH. BED ALARM ON.
--- NOTE | 2019-02-03 23:53 | NUR ---
IV PUMP ALARMING, DISTAL OCCLUSION. pt AWAKENS TO VOICE TO STRAIGHTEN ARM. IVF INFUSING WNL ORDERED. BED ALARM ON.
--- NOTE | 2019-02-04 00:30 | NUR ---
pt CALLING OUT RN'S NAME. ASSISTED pt TO REPOSITION IN BED. IVF INFUSING WNL ORDERED. NO REQUESTS AT THIS TIME. CALL LIGHT IN REACH.
--- NOTE | 2019-02-04 01:21 | NUR ---
pt SHIFTING IN BED, UP AT SIDE OF BED. STATES "I JUST CAN'T CALM DOWN, KEEP FALLING IN THE HOLE". PRN AGITATION MEDICATION AND PAIN MEDICATIONS ADMINISTERED. REPOSITIONED IN BED WITH 2PA, pt ABLE TO HELP. HINGE BRACE ON RIGHT KNEE. CALL LIGHT IN REACH. BED ALARM ON. IVF INFUSING WNL.
--- NOTE | 2019-02-04 02:07 | NUR ---
pt RESTING IN BED WITH EYES CLOSED. BREATHING EQUAL AND UNLABORED. NOT SHIFTING IN BED. BED ALARM ON.
--- NOTE | 2019-02-04 03:41 | NUR ---
CALL LIGHT ANSWERED. 1PA TO BSC FOR VOID AND BACK TO BED. ASSESSMENT COMPLETE. HINGE BRACE IN PLACE R LEG. CSM INTACT, 1+ PITTING EDEMA RLE, TRACE LLE. LUNG SOUNDS CLEAR, DIMINISHED LLL. IVF INFUSING WNL ORDERED. BED ALARM ON. CALL LIGHT IN REACH.
--- NOTE | 2019-02-04 05:02 | NUR ---
IV PUMP ALARMING. IVF BAG COMPLETE. SL WNL. pt RATES PAIN 5.5/10, PRN TYLENOL ADMINISTERED. ASSISTED TO REPOSITION IN BED. VSS. CALL LIGHT IN REACH. BED ALARM ON. NO REQUESTS AT THIS TIME.
--- NOTE | 2019-02-04 05:06 | NUR ---
pt ALERT AND ORIENTED X 4. OCCASIONAL HALLUCINATIONS AT START OF SHIFT. 1PA TO BSC FOR QS VOIDS. TOE TOUCH WEIGHT BEARING RIGHT LEG, HINGE BRACE IN PLACE. PAIN WELL CONTROLLED WITH PRN PO MEDICATIONS. IV SITE SL WNL. PARTIAL BED BATH THIS SHIFT. PRN AGITATION MEDICATION X 1.
--- NOTE | 2019-02-04 07:33 | NUR ---
0720: BEDSIDE REPORT RECIEVED FROM JONO VARGAS. PT RESTING IN HER BED AND SHE STATES HER PAIN IS NOW A 5/10 WHICH IS ACCEPTABLE TO HER AND SHE HAS NO NEW COMPLAINTS. CALL ALBARRAN WITHIN REACH AND BED ALARM IS NO.
--- NOTE | 2019-02-04 07:38 | NUR ---
PATIENTS BOARD UPDATED, PATIENT DID NOT NEED ANYTHING ELSE AT THAT MOMENT, CALL LIGHT IN REACH
--- NOTE | 2019-02-04 08:12 | NUR ---
PT STATES HER BACK PAIN HAS INCREASED TO A 6 AND SHE WAS MEDICATED ORDERED, SEE EMAR. PT ALERT AND ORIENTED, CALL ALBARRAN WITHIN REACH AND BED ALARM REMAINS INPLACE DUE TO HER HISTORY. PT STATES UNDERSTANDING ON THE NEED CALL FOR ASSIST AND THE TOE TOUCH ONLY ON HER RIGHT LEG.
--- NOTE | 2019-02-04 09:30 | NUR ---
In and spoke with Dionne. She's wanting to know if she will go to [facility]. Let her know I have sent the current notes and am waiting confirmation of admit. Pt states she is ok, trying to not take pain pills. Encouraged to take pain pills as needed as this is when she should. Education provided for better healing when pain is managed. Called [facility] when finished with visit, unable to reach Silvana and message left.
--- NOTE | 2019-02-04 09:54 | NUR ---
Pt assisted to the commode to void and then back to bed. Pt tolerated it well and she now states her pain is well controled.
--- NOTE | 2019-02-04 11:03 | NUR ---
PT SLEEPING AT THIS TIME.
--- NOTE | 2019-02-04 12:18 | NUR ---
PT ALERT, ORIENTED AND ENJOYING SOME JELLO. PT ALSO HAD SOME SOUP, BUT JUST HASN'T FOUND ONE THAT SHE REALLY LIKES. MADE SOME SUGGESTIONS, SETTLED ON GISELL LINDSEY TO TRY NEXT. WILL INFORM RN OF HER CHOICE. PLEASANT VISIT, WONDERS ABOUT THE WEATHER. REQUESTED PRAYER, WILL FOLLOW NEEDED
--- NOTE | 2019-02-04 12:23 | NUR ---
RIGHT KNEE BRACE REAMINS IN PLACE AND CRYO CUFF REFILLED AND REPLACED. RIGHT LEG CIRCULATION REAMINS INTACT WITH + 1 EDEMA NOTED, WHICH SHE STATES IS BASELINE. SHE STATES SHE HAS SOME BACK PAIN BUT THAT IT IS UNDER CONTROL AT THIS TIME. PT DENIES ANY OTHER PROBLEMS AT THIS TIME.
--- NOTE | 2019-02-04 14:34 | NUR ---
PT STATES HER PAIN IS NOW A 9 AFTER WORKING WITH PHYSICAL THERAPY. PT MEDICATED ORDERED, SEE EMAR. PT NOW SPEAKING WITH CHRISTINA VARGASRESIDENCE MANAGERMOVERS.
--- NOTE | 2019-02-04 15:01 | NUR ---
Pt has some visitors in her room at this time. She states her back pain is improving since taking a dose of pain medication and she also states that her nerve stimiulator is helping. She states she will notify me if the pain starts climing again.
--- NOTE | 2019-02-04 16:03 | NUR ---
Upon checking on the pt she states she is having some agitation and back pain which she rates at an 8, pt medicated. See emar. Pt remains alert and oriented.
--- NOTE | 2019-02-04 16:33 | NUR ---
Attempted to call [facility], unable to contact. Message left requesting they call and let me know if they will accept this pt. tomorrow.
--- NOTE | 2019-02-04 17:10 | NUR ---
Pt resting in her bed watching tv. She states she continues to have pain but denies the need for anything for it at this time. She states she will call if the pain increases.
--- NOTE | 2019-02-04 18:45 | NUR ---
PT STATES HER PAIN IS A 7 AFTER GETTING UP AND USING THE COMMODE. PT MEDICATED ORDERED, SEE EMAR.
--- NOTE | 2019-02-04 19:10 | NUR ---
SHIFT REPORT RECEIVED FROM WENDY ALLEN AT BEDSIDE. PT AWAKE AND RESTING IN BED, BED ALRM ON FOR SAFETY. CYRO CUFF IN PLACE, CALL LIGHT IN REACH. NO NEEDS AT THIS TIME, BOARD UPDATED.
--- NOTE | 2019-02-04 21:00 | NUR ---
PT RESTING IN BED, EYES OPEN AND WATCHING TELEVISION. NO NEEDS VERBALIZED AT THIS TIME, CALL LIGHT IN REACH.
--- NOTE | 2019-02-04 22:15 | NUR ---
ASSESSMENT COMPLETE, SCHEDULED MEDS GIVEN (SEE EMAR). A/OX4, BED ALRM ON FOR SAFETY. VSS, PT REPORTS 9/10 PAIN, PRN MOTRIN ADMINISTERED. PT ASSISTED WITH REPOSITIONING IN BED, DENIES NEED TO VOID AT THIS TIME AND WISHES TO WAIT UNTIL PAIN MEDICATION TAKES EFFECT. RIGHT LEG BRACE IN PLACE, CMS INTACT. PT DENIES NUMBNESS AND TINGLING. NO FURTHER NEEDS AT THIS TIME, CALL LIGHT IN REACH.
--- NOTE | 2019-02-05 00:18 | NUR ---
PT UP 2PA WITH FWW TO BSC, RLE TOE TOUCH. 300 MLS OUTPUT AND RESTING BACK IN BED. NEW GOWN AND PARTIAL BED CHANGE PROVIDED. NO FURTHER NEEDS, CALL LIGHT IN REACH. BED ALARM ON.
--- NOTE | 2019-02-05 02:52 | NUR ---
PT RESTING IN BED, EYES CLOSED. RESPIRATIONS EVEN AND UNLABORED. NO DISTRESS NOTED, RIGHT LEG BRACE IN PLACE. BED ALARM ON, CALL LIGHT IN REACH.
--- NOTE | 2019-02-05 05:14 | NUR ---
PT HAD UNEVENTFUL NIGHT, SLEPT FOR MOST OF SHIFT. VSS, PT A/OX4. SALINE LOCKED, SITE WNL. PAIN CONTROLLED WITH PRN PAIN MEDICATION. RIGHT LEG BRACE, TOE TOUCH. 1-2PA WITH FWW TO BSC. REGULAR DIET, TOLERATING WELL. NO NAUSEA THIS SHIFT. USES CALL LIGHT APPROPERIATELY.
--- NOTE | 2019-02-05 06:12 | NUR ---
ASSESSMENT COMPLETE, NO NEW CHANGES OR CONCERNS. PT REPORTS 5/10 TOLERABLE PAIN. CMS INTACT, RIGHT LEG BRACE IN PLACE, RIGHT LEG TOE TOUCH TO BSC 2PA WITH FWW. PT BACK IN BED, ALARM ON. NO FURTHER NEEDS, CALL LIGHT IN REACH.
--- NOTE | 2019-02-05 06:14 | NUR ---
SCHEDULED RANITIDINE GIVEN (SEE EMAR). CALL LIGHT IN REACH.
--- NOTE | 2019-02-05 07:39 | NUR ---
MORNING ASSESSMENT DONE. PATIENT RATES 8/10 PAIN IN RIGHT RIB, BACK, NECK AREA. PATIENT RESTING IN BED, ENCOURAGED TO USE INCENTIVE SPIROMETER. RIGHT KNEE BRACE IN PLACE. BREAKFAST IS ORDERED.
--- NOTE | 2019-02-05 09:00 | NUR ---
Snf orders to Dr. Lin in endo to sign. Faxed with [facility], last progress notes, PT assessment to [place].
--- NOTE | 2019-02-05 10:13 | NUR ---
PATIENT REFUSED TO WORK WITH PHYSICAL THERAPY TODAY.
--- NOTE | 2019-02-05 10:28 | NUR ---
PATIENT UP TO BATHROOM TO VOID AND BM. PATIENT AMBULATED BACK TO BED WITH P.T. AND USING WALKER WELL.
--- NOTE | 2019-02-05 11:00 | NUR ---
Received confirmation from Silvana at [facility] of orders. They will call when they can tranport. In and spoke with maiadoug. She states she is feeling well today. Wanting to get to [facility] and start rehab. Denies questions or complaints.
--- NOTE | 2019-02-05 11:16 | NUR ---
SPOKE WITH CHRISTINA-METABOLIC SPECIALIST ABOUT MONEY, CHECKBOOK AND BANK CARD PT HAS LOCKED UP IN SAFE. ASKED THAT I ASK PT WHAT SHE WOULD LIKE DONE WITH PERSONAL PROPERTY. 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 RICHI WAS UNABLE TO BE REACHED BUT I DID SPEAK WITH FLOWER @ [phone] AND HE STATED HE WILL BE IN SHORTLY, IF NOT HE WOULD REACH RICHI [phone] AND SHE WILL COME. I INFORMED PATIENT AND SHE IS PLEASED.
--- NOTE | 2019-02-05 11:18 | NUR ---
RIGHT A/C IV REMOVED WITH CATHETER INTACT. PATIENT PERSONAL ITEMS PACKED. [facility]
--- NOTE | 2019-02-05 11:48 | NUR ---
PATIENT TRANSPORTED TO [facility]. REPORT CALLED TO [place].
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
== END 2019-02-05 11:40 | DRG 183 ==
LOC: ED 18:45 → MS 18:46
PROVIDERS: ADMIT Colon & Rectal Surgery
DX: S22.42XA Multiple fractures of ribs, left side, initial encounter for closed fracture (principal); G93.41 Metabolic encephalopathy; T79.1XXA Fat embolism (traumatic), initial encounter; S82.141A Displaced bicondylar fracture of right tibia, initial encounter for closed fracture; N30.00 Acute cystitis without hematuria; S70.12XA Contusion of left thigh, initial encounter; S06.0X0A Concussion without loss of consciousness, initial encounter; E79.0 Hyperuricemia without signs of inflammatory arthritis and tophaceous disease; I25.10 Atherosclerotic heart disease of native coronary artery without angina pectoris; E78.00 Pure hypercholesterolemia, unspecified; I10 Essential (primary) hypertension; K21.9 Gastro-esophageal reflux disease without esophagitis; F34.1 Dysthymic disorder; M47.9 Spondylosis, unspecified; V48.5XXA Car driver injured in noncollision transport accident in traffic accident, initial encounter; Z79.899 Other long term (current) drug therapy; Z88.0 Allergy status to penicillin; Z87.891 Personal history of nicotine dependence
CPT/HCPCS: 36415; 70450; 71045; 71260; 72125; 73560; 73700; 74177; 80048; 80053; 81001; 82150; 82550; 83690; 83735; 84100; 85025; 86140; 86850; 86900; 86901; 87077; 87088; 87186; 93005; 93010; 94760; 94762; 97110; 97116; 97163; 97530; 99285-25; A9270; G0480; J0696; J1170; J1885; J2310; J2405; J3010; J3480; J7060; J7121; Q9967